=== PATIENT | male | born 1965 | race Caucasian/White ===

== ENCOUNTER → 2017-10-08 | Outpatient (CLI) | payer MEDICARE, MEDICAID ==
[~2017-10-08] MED LIST: ANAPROX DS550 MG PO; ATENOLOL50 MG PO; ATIVAN PO; ATIVAN2 MG PO; BP MED; FLEXERIL10 MG PO; LISINOPRIL40 MG PO; METFORMIN500 MG PO; MOTRIN800 MG PO; Motrin,Rufen800 MG PO; NORFLEX100 MG PO; PRAVASTATIN SOD20 MG PO; PROVENTIL0.09 MG/AC IH; SYNTHROID0.025 MG PO; TRAMADOL HCL50 MG PO; VICODIN ES 7501 TAB PO; ZANTAC150 MG PO; ZITHROMAX Z PA250 MG PO
== END | disposition home or self-care (01) ==
LOC: MRI 10:41
DX: M51.86 Other intervertebral disc disorders, lumbar region (principal); E88.2 Lipomatosis, not elsewhere classified; M48.061 Spinal stenosis, lumbar region without neurogenic claudication

== ENCOUNTER → 2019-04-10 | Outpatient (CLI) | payer MEDICARE, MEDICAID ==
[2019-04-10 09:39] LABS: BUN 12 mg/dl (7-24); CHLORIDE 99 mmol/L (98-107); CHOLESTEROL 187 mg/dL (<200); CREATININE 1.03 mg/dL (0.70-1.30); POTASSIUM 4.2 mmol/L (3.5-5.1); SODIUM 132 mmol/L (136-145); TRIGLYCERIDES 143 mg/dl (<150); VLDL CHOLESTEROL 29 mg/dL (6-40)
[2019-04-10 09:46] LABS: HDL CHOLESTEROL 78 mg/dl (40-60); LDL CHOLESTEROL 80 mg/dL (9-159)
== END | disposition home or self-care (01) ==
LOC: LAB 07:56
PROVIDERS: Family Medicine
DX: I10 Essential (primary) hypertension (principal); E78.2 Mixed hyperlipidemia; R73.9 Hyperglycemia, unspecified

== ENCOUNTER → 2021-01-09 | Outpatient (CLI) | payer MEDICARE, MEDICAID ==
[2021-01-09 08:32] LABS: BUN 7 mg/dl (7-24); CHLORIDE 96 mmol/L (98-107); CHOLESTEROL 161 mg/dL (<200); CREATININE 0.94 mg/dL (0.70-1.30); POTASSIUM 4.2 mmol/L (3.5-5.1); SODIUM 131 mmol/L (136-145); TRIGLYCERIDES 104 mg/dl (<150)
[2021-01-09 08:34] LABS: LDL CHOLESTEROL 72 mg/dL (9-159)
== END | disposition home or self-care (01) ==
LOC: LAB 07:28
PROVIDERS: ATTEND Family Medicine
DX: I10 Essential (primary) hypertension (principal); E78.2 Mixed hyperlipidemia; R73.9 Hyperglycemia, unspecified

== ENCOUNTER → 2021-11-29 | Outpatient (CLI) | payer MEDICARE, MEDICAID ==
[2021-11-29 08:59] LABS: BUN 6 mg/dl (7-24); CHLORIDE 91 mmol/L (98-107); CHOLESTEROL 141 mg/dL (<200); CREATININE 0.86 mg/dL (0.70-1.30); LDL CHOLESTEROL 44 mg/dL (9-159); POTASSIUM 4.5 mmol/L (3.5-5.1); SODIUM 125 mmol/L (136-145); TRIGLYCERIDES 70 mg/dl (<150)
== END | disposition home or self-care (01) ==
LOC: LAB 08:12
PROVIDERS: ATTEND Family Medicine
DX: I10 Essential (primary) hypertension (principal); E11.9 Type 2 diabetes mellitus without complications; R73.9 Hyperglycemia, unspecified

== ENCOUNTER → 2022-01-23 | Outpatient (CLI) | payer MEDICARE, MEDICAID ==
[2022-01-23 08:26] LABS: BUN 3 mg/dl (7-24); CHLORIDE 95 mmol/L (98-107); CREATININE 0.83 mg/dL (0.70-1.30); POTASSIUM 4.8 mmol/L (3.5-5.1); SODIUM 129 mmol/L (136-145)
== END | disposition home or self-care (01) ==
LOC: LAB 07:45
PROVIDERS: ATTEND Family Medicine
DX: I10 Essential (primary) hypertension (principal)

== ENCOUNTER → 2022-02-12 | Outpatient (CLI) | payer MEDICARE, MEDICAID | END | disposition home or self-care (01) | LOC: RAD 07:50 | PROVIDERS: ATTEND Family Medicine | DX: M47.817 Spondylosis without myelopathy or radiculopathy, lumbosacral region (principal); M40.47 Postural lordosis, lumbosacral region; M43.8X4 Other specified deforming dorsopathies, thoracic region; I70.0 Atherosclerosis of aorta; M48.07 Spinal stenosis, lumbosacral region; M47.814 Spondylosis without myelopathy or radiculopathy, thoracic region; M48.04 Spinal stenosis, thoracic region; M85.88 Other specified disorders of bone density and structure, other site; R06.02 Shortness of breath ==

== ENCOUNTER → 2022-12-14 | Outpatient (CLI) | payer MEDICARE, MEDICAID ==
[2022-12-14 07:42] LABS: BASO # 0.1 10*3/uL (0.0-0.1); BASO % 1.3 % (0.0-1.0); EOS # 0.3 10*3/uL (0.0-0.4); EOS % 4.2 % (1.0-4.0); HEMATOCRIT 51.3 % (42.0-52.0); LYMPH # 1.9 10*3/uL (1.3-4.4); LYMPH % 27.9 % (27.0-41.0); MEAN CELL VOLUME 93.4 fl (80.0-94.0); MEAN CORPUSCULAR HGB 32.4 pg (27.0-31.0); MEAN CORPUSCULAR HGB CONC 34.7 g/dl (33.0-37.0); MEAN PLATELET VOLUME 8.3 fl (9.6-12.3); MONO % 15.1 % (3.0-9.0); NEUT # 3.4 10*3/uL (2.3-7.9); NEUT % 51.1 % (47.0-73.0); PLATELET COUNT AUTOMATED 292 10*3/uL (130-400); RED BLOOD COUNT 5.49 10*6/uL (4.50-5.90); RED CELL DISTRI WIDTH 12.8 % (0-14.5); WHITE BLOOD COUNT 6.7 10*3/uL (4.8-10.8)
[2022-12-14 08:17] LABS: ALKALINE PHOSPHATASE 84 U/L (46-116); BUN 6 mg/dl (9-23); CHLORIDE 94 mmol/L (98-107); CHOLESTEROL 143 mg/dL (<200); LDL CHOLESTEROL 70 mg/dL (9-159); SGPT/ALT 47 U/L (10-49); THYROID STIM HORMONE (HS) 1.892 uIU/ml (0.550-4.780); TOTAL PROTEIN 8.1 gm/dL (6.0-8.0); TRIGLYCERIDES 88 mg/dl (<150)
== END | disposition home or self-care (01) ==
LOC: LAB 07:23
PROVIDERS: ATTEND Family Medicine
DX: I10 Essential (primary) hypertension (principal); E78.2 Mixed hyperlipidemia; R73.03 Prediabetes; R53.83 Other fatigue

== ENCOUNTER 2023-05-25 05:09 | Emergency (ER) | payer MEDICARE, MEDICAID ==
[~2023-05-25] VITALS: Ht 177.8 cm; Wt 117.9 kg
[~2023-05-25 05:09] MED LIST changes: +ATIVAN2 M1 PO; -ATIVAN2 MG PO
== END 2023-05-25 05:41 | disposition home or self-care (01) ==
LOC: ED 05:09
DX: Z76.0 Encounter for issue of repeat prescription (principal); I10 Essential (primary) hypertension; E11.9 Type 2 diabetes mellitus without complications; F41.9 Anxiety disorder, unspecified; K21.9 Gastro-esophageal reflux disease without esophagitis; E03.9 Hypothyroidism, unspecified

== ENCOUNTER 2023-05-27 06:57 | Emergency (ER) | payer MEDICARE, MEDICAID ==
[~2023-05-27] VITALS: Ht 177.8 cm; Wt 117.9 kg
[2023-05-27] MEDS ORDERED: ATIVAN2 M1 PO (08:38)
== END 2023-05-27 08:43 | disposition home or self-care (01) ==
LOC: ED 06:57
DX: Z76.0 Encounter for issue of repeat prescription (principal); I10 Essential (primary) hypertension; E11.9 Type 2 diabetes mellitus without complications; F41.9 Anxiety disorder, unspecified; K21.9 Gastro-esophageal reflux disease without esophagitis; E03.9 Hypothyroidism, unspecified; Z98.890 Other specified postprocedural states

== ENCOUNTER 2024-01-29 06:47 | Emergency (ER) | payer MEDICARE, MEDICAID ==
[~2024-01-29] VITALS: Ht 177.8 cm; Wt 115.7 kg
[2024-01-29] MEDS ORDERED: PERCOCET 10-321 EACH PO (06:53)
[2024-01-29] MEDS ORDERED: AMBIEN10 M1 PO (06:53)
[2024-01-29] MEDS ORDERED: SODIUM CHLORIDE 0.9% 1,000 ML IV ONE (07:05)
[2024-01-29] MEDS ORDERED: Metoclopramide Hydrochloride 10 MG/2 ML AMP IV ONE (07:05)
[2024-01-29] MEDS ORDERED: diphenhydrAMINE hydrochloride 50 MG/ML VIAL IV ONE (07:05)
[2024-01-29] MEDS ORDERED: Ketorolac Tromethamine 15 MG/ML VIAL IV ONE (07:05)
[2024-01-29 07:25] LABS: BASO # 0.1 10*3/uL (0.0-0.1); BASO % 1.2 % (0.0-1.0); EOS # 0.4 10*3/uL (0.0-0.4); EOS % 6.3 % (1.0-4.0); HEMATOCRIT 45.1 % (42.0-52.0); LYMPH # 2.2 10*3/uL (1.3-4.4); LYMPH % 31.9 % (27.0-41.0); MEAN CELL VOLUME 97.8 fl (80.0-94.0); MEAN CORPUSCULAR HGB 33.2 pg (27.0-31.0); MEAN CORPUSCULAR HGB CONC 33.9 g/dl (33.0-37.0); MEAN PLATELET VOLUME 8.5 fl (9.6-12.3); MONO % 14.6 % (3.0-9.0); NEUT # 3.1 10*3/uL (2.3-7.9); NEUT % 45.6 % (47.0-73.0); PLATELET COUNT AUTOMATED 277 10*3/uL (130-400); RED BLOOD COUNT 4.61 10*6/uL (4.50-5.90); RED CELL DISTRI WIDTH 12.8 % (0-14.5); WHITE BLOOD COUNT 6.9 10*3/uL (4.8-10.8)
[2024-01-29 07:44] LABS: BUN 10 mg/dl (9-23); CHLORIDE 103 mmol/L (98-107); POTASSIUM 4.1 mmol/L (3.4-5.1)
[2024-01-29] MEDS ORDERED: Dexamethasone Sodium Phospha 20 MG/5 ML VIAL IV ONE (07:55)
[2024-01-29] MEDS ORDERED: Acetaminophen/Oxycodone 5 MG/325 MG TABLET PO ONE (07:55)
== END 2024-01-29 08:08 | disposition home or self-care (01) ==
LOC: ED 06:47
PROVIDERS: Emergency Medicine
DX: G43.909 Migraine, unspecified, not intractable, without status migrainosus (principal); M54.9 Dorsalgia, unspecified; I10 Essential (primary) hypertension; E11.9 Type 2 diabetes mellitus without complications; F41.9 Anxiety disorder, unspecified; K21.9 Gastro-esophageal reflux disease without esophagitis; E03.9 Hypothyroidism, unspecified; Z98.890 Other specified postprocedural states

== ENCOUNTER → 2024-02-14 | Outpatient (CLI) | payer MEDICARE, MEDICAID ==
[~2024-02-14] MED LIST changes: +AMBIEN10 M1 PO; +PERCOCET 10-321 EACH PO
[2024-02-14 07:56] LABS: BASO # 0.1 10*3/uL (0.0-0.1); BASO % 0.9 % (0.0-1.0); EOS # 0.3 10*3/uL (0.0-0.4); EOS % 4.1 % (1.0-4.0); LYMPH # 1.7 10*3/uL (1.3-4.4); LYMPH % 21.3 % (27.0-41.0); MEAN CELL VOLUME 93.1 fl (80.0-94.0); MEAN CORPUSCULAR HGB 33.6 pg (27.0-31.0); MEAN CORPUSCULAR HGB CONC 36.1 g/dl (33.0-37.0); MONO # 1.2 10*3/uL (0.1-1.0); MONO % 15.4 % (3.0-9.0); NEUT # 4.7 10*3/uL (2.3-7.9); NEUT % 57.9 % (47.0-73.0); PLATELET COUNT AUTOMATED 309 10*3/uL (130-400); RED BLOOD COUNT 4.94 10*6/uL (4.50-5.90); RED CELL DISTRI WIDTH 12.7 % (0-14.5)
[2024-02-14 08:18] LABS: ALKALINE PHOSPHATASE 76 U/L (46-116); BUN 6 mg/dl (9-23); CHLORIDE 97 mmol/L (98-107); CHOLESTEROL 184 mg/dL (<200); CPK 102 U/L (34-171); FREE T4 1.15 ng/dl (0.89-1.76); LDL CHOLESTEROL 89 mg/dL (9-159); POTASSIUM 4.6 mmol/L (3.4-5.1); SGPT/ALT 27 U/L (5-49); TOTAL PROTEIN 7.6 gm/dL (6.0-8.0); TRIGLYCERIDES 139 mg/dl (<150)
[2024-02-14 08:35] LABS: VITAMIN D, 25-HYDROXY 22.4 ng/mL (30-100)
== END | disposition home or self-care (01) ==
LOC: LAB 07:26
PROVIDERS: ATTEND Internal Medicine
DX: Z12.5 Encounter for screening for malignant neoplasm of prostate (principal); I10 Essential (primary) hypertension; Z79.899 Other long term (current) drug therapy; Z79.891 Long term (current) use of opiate analgesic

== ENCOUNTER → 2024-05-22 | Outpatient (CLI) | payer OTHER, MEDICAID | END | disposition home or self-care (01) | LOC: CT 01:44 | PROVIDERS: ATTEND Internal Medicine | DX: Z12.2 Encounter for screening for malignant neoplasm of respiratory organs (principal); R91.1 Solitary pulmonary nodule; F17.210 Nicotine dependence, cigarettes, uncomplicated; J43.2 Centrilobular emphysema ==

== ENCOUNTER 2024-10-29 04:15 | Emergency (ER) | payer OTHER, MEDICAID ==
[~2024-10-29] VITALS: Ht 177.8 cm; Wt 120.2 kg
== END 2024-10-29 05:51 | disposition home or self-care (01) ==
LOC: ED 04:15
DX: R09.82 Postnasal drip (principal); Z20.822 Contact with and (suspected) exposure to COVID-19; R09.89 Other specified symptoms and signs involving the circulatory and respiratory systems; Z79.899 Other long term (current) drug therapy

== ENCOUNTER → 2025-03-07 | Outpatient (CLI) | payer OTHER, MEDICAID ==
[2025-03-07 09:01] LABS: BASO # 0.1 10*3/uL (0.0-0.1); BASO % 1.6 % (0.0-1.0); EOS # 0.6 10*3/uL (0.0-0.4); EOS % 9.2 % (1.0-4.0); MEAN CELL VOLUME 92.7 fl (80.0-94.0); MEAN CORPUSCULAR HGB 30.8 pg (27.0-31.0); MEAN PLATELET VOLUME 8.2 fl (9.6-12.3); MONO # 1.1 10*3/uL (0.1-1.0); MONO % 15.6 % (3.0-9.0); NEUT # 2.4 10*3/uL (2.3-7.9); NEUT % 35.2 % (47.0-73.0); NUCLEATED RED BLOOD CELL 0.0 % (0.0-0.0); NUCLEATED RED BLOOD CELL 0.0 10*3/uL (0.0-0.0); PLATELET COUNT AUTOMATED 300 10*3/uL (130-400); RED CELL DISTRI WIDTH 12.5 % (0-14.5)
[2025-03-07 10:12] LABS: BUN 10 mg/dl (9-23); FREE T4 1.04 ng/dl (0.89-1.76); LDL CHOLESTEROL 69 mg/dL (9-159); SGPT/ALT 51 U/L (5-49)
[2025-03-07 10:14] LABS: VITAMIN D, 25-HYDROXY 33.3 ng/mL (30-100)
== END ==
LOC: LAB 08:21
PROVIDERS: ATTEND Internal Medicine
DX: M48.54XA Collapsed vertebra, not elsewhere classified, thoracic region, initial encounter for fracture (principal); Z12.5 Encounter for screening for malignant neoplasm of prostate; M54.9 Dorsalgia, unspecified; I10 Essential (primary) hypertension; R73.03 Prediabetes; Z71.89 Other specified counseling

== ENCOUNTER → 2025-05-24 | Outpatient (CLI) | payer OTHER, MEDICAID | END | disposition home or self-care (01) | LOC: US 05-03 10:30 | PROVIDERS: ATTEND Internal Medicine | DX: R16.0 Hepatomegaly, not elsewhere classified (principal); R74.8 Abnormal levels of other serum enzymes ==

== ENCOUNTER → 2025-06-15 | Outpatient (CLI) | payer OTHER, MEDICAID | END | disposition home or self-care (01) | LOC: RAD 07:17 | PROVIDERS: ATTEND Internal Medicine | DX: M47.812 Spondylosis without myelopathy or radiculopathy, cervical region (principal); M50.323 Other cervical disc degeneration at C6-C7 level; M40.40 Postural lordosis, site unspecified; M25.78 Osteophyte, vertebrae ==